=== PATIENT | female | born 1965 | race Caucasian/White ===

== ENCOUNTER 2019-10-02 15:01 | Outpatient (CLI) | payer SELFPAY ==
--- NOTE | 2019-10-02 15:07 | US_ITS ---
WS: [id number] ULTRASOUND SOFT TISSUES RIGHT axilla. HISTORY: RIGHT AXILLARY ACUTE LYMPHANGITIS COMPARISON: None available. TECHNIQUE: 2-D and color Doppler imaging is submitted. No soft tissue masses or fluid collections in the RIGHT axilla. No lymphadenopathy. US/US soft tissue/extremity [id number] IMPRESSION: Normal ultrasound RIGHT axilla.
== END 2019-10-02 15:02 | disposition home or self-care (01) ==
LOC: US 15:02
PROVIDERS: PCP Nurse Practitioner Family; Visit Provider Nurse Practitioner Family
DX: L03.121 Acute lymphangitis of right axilla (principal)
CPT/HCPCS: 76882

== ENCOUNTER 2019-10-17 08:32 | Outpatient (CLI) | payer OTHER, SELFPAY ==
--- NOTE | 2019-10-17 08:38 | MM_ITS ---
WS: [id number] DIAGNOSTIC BILATERAL DIGITAL MAMMOGRAM WITH CAD RIGHT breast ultrasound, limited HISTORY: RT BREAST LUMP AXILLA COMPARISON: None available. TECHNIQUE: Bilateral craniocaudad, mediolateral oblique, and mediolateral views are submitted. Spot c ompression RIGHT MLO. Computer aided detection utilized. Breast composition: The breasts are heterogeneously dense, which may obscure small masses. No suspici ous masses or calcifications. Palpable marker towards the inferior RIGHT axilla demonstrates no under lying abnormality. There are benign symmetric lymph nodes in the axilla. RIGHT breast ultrasound, limited. Ultrasound is directed to the axilla. There is no mass. No skin thickening or increased vascularity. MM/[place] [id number] IMPRESSION: BI-RADS: 2-Benign FOLLOW UP: 1 Year Follow-up
== END 2019-10-17 08:33 | disposition home or self-care (01) ==
LOC: RADSHAW 08:34
PROVIDERS: PCP Nurse Practitioner Family; Visit Provider Nurse Practitioner
DX: R22.31 Localized swelling, mass and lump, right upper limb (principal)
CPT/HCPCS: 76642; 77066

== ENCOUNTER 2020-01-21 14:21 | Outpatient (CLI) | payer SELFPAY ==
--- NOTE | 2020-01-21 14:34 | CT_ITS ---
WS: [id number] CT LUNG CANCER SCREENING DLP: 77.12 mGy.cm DIvol: 2.26 mGy CLINICAL INFORMATION SCREENING VISIT: Baseline COMPARISON: None available. FINDINGS Diagnostic quality: Satisfactory Comments: None. Lung Nodules: No noncalcified pulmonary nodules. There is a calcified nodule in the posterior RIGHT u pper lobe measuring 5 mm. Lungs: Paraseptal emphysema. Heart: Normal size heart. Small amount of pericardial thickening anteriorly. Other findings: Minimal atherosclerosis aorta. Pulmonary artery size is normal. There are a few scatt ered calcifications in the LEFT anterior descending coronary artery. No mediastinal or hilar adenopat hy. No adrenal mass. No osseous destruction. CT/CT lung screening [id number] IMPRESSION: LUNG-RADS: 1-Negative FOLLOW UP: 12 Month: Continue annual screening with LDCT
== END 2020-01-21 14:22 | disposition home or self-care (01) ==
LOC: RAD 14:23
PROVIDERS: PCP Nurse Practitioner Family; Visit Provider Family Medicine
DX: Z12.2 Encounter for screening for malignant neoplasm of respiratory organs (principal); Z87.891 Personal history of nicotine dependence
CPT/HCPCS: G0297

== ENCOUNTER 2020-03-17 05:48 | Day surgery (SDC) | payer SELFPAY ==
[2020-03-17 06:08] VITALS: BP 133/91; PULSE 69; RESP 16; TEMP 36.6; O2SAT 99; BMI 26.2
--- NOTE | 2020-03-17 06:10 | W.PM.OPSUD ---
Surgery/Procedure H&P Update DATE OF PROCEDURE: March 17, 2020 DATE H&P PERFORMED: 02/19/20 H&P UPDATE INFORMATION: I have reviewed H&P completed within last 30 days, I have examined patient prior to procedure and No changes to prior documentation PREOP DIAGNOSIS: Bleeding per rectum PRIMARY INDICATION FOR PROCEDURE: The same PLANNED PROCEDURE: Operation Date: 03/17/20 07:00 Proposed Procedures p Colonoscopy [id number] 22993 Z12.11 K64.9(Not Applicable) - Manoj Costello MD s Exam Under Anesthesia(Not Applicable) - Manoj Costello MD s Hemorroidectomy(Not Applicable) - Manoj Costello MD
--- NOTE | 2020-03-17 06:20 | ANES.PREANE2 ---
Pre-Anesthetic Assessment Pre-Anesthetic Assessment: Height/Weight: Height 1.63 m Preop Diagnosis: Bleeding per rectum Proposed Procedure: Operation Date: 03/17/20 07:00 Proposed Procedures p Colonoscopy [id number] 87570 Z12.11 K64.9(Not Applicable) - Manoj Costello MD s Exam Under Anesthesia(Not Applicable) - Manoj Costello MD s Hemorroidectomy(Not Applicable) - Manoj Costello MD Familial anesthetic complications: \None Was Beta Newton taken within 24 hours: N/A Last intake: NPO > 8 hrs Social: Social History: Alcohol and No tobacco Comment: 10 beers a week Exam: Pre-Anes Outpt Exam: alert, oriented x 3, clear to auscultation bilaterally and regular rate & rhythm Airway: Cervical ROM: WNL MP: 3 Dentition: Partials Pulmonary: Pulmonary: None reported CV/HEM: CV/HEM: HTN : : None reported Hepatic: Hepatic: None reported GI: GI: GERD Metabolic: Metabolic: Thyroid Musc/skel: Musc/skel: None reported Neuropsych: Neuropsych: None reported Anesthetic Plan: ASA status: 2 Anesthesia: General Risk of > 500 ml blood loss (7ml/kg in children): No PFSH Anesthesia PFSH: Medical History Blood in stool Hemorrhoids Hyperlipidemia Hypothyroidism Joint pain in both hands Screen for colon cancer Surgical History H/O hysterectomy with unilateral oophorectomy right ovary removed h/o cervical cancer History of appendectomy Family History Mother Cancer cervical CAD (coronary artery disease) Clotting disorder Hypertension Osteoarthritis Hypothyroid Social History Smoking and tobacco status: former smoker Alcohol intake: current Data Anesthesia Cardiac Studies: No Data to Display
[2020-03-17] MEDS: sodium chloride 0.9% 1,000 ML 30 ML IV (06:34)
[2020-03-17] MEDS: piperacillin-tazobactam 3.375 GM in sodium chloride 0.9% (plus) 50 ML IV (06:57)
[2020-03-17] MEDS: sodium chloride 0.9% SDV 10 mL (07:48)
--- NOTE | 2020-03-17 07:58 | P.OP_ITS ---
Operative Report Date of procedure: March 17, 2020 Pre-op Diagnosis: Bleeding per rectum Post-op diagnosis: other (Right sided colon polyp, rectal polyp and right lower lateral hemorrhoid) Procedure Done: Colonoscopy with examination under anesthesia and hemorrhoidectomy Specimens removed/disposition: Right sided colon polyp, rectal polyp and right lower lateral hemorrhoid Surgeon: Manoj Costello Rotary Operator: Surgical liz Florentino Circulating nurse Eloina Anesthesia: MAC (dance instructor Smart) Estimated blood loss (mL): 10 Condition: stable Disposition: same day Brief History: This is a pleasant 54 years old female patient presented to my office with history of bleeding per rectum in the presence of hemorrhoidal disease, after thorough history physical examination reviewing the chart I did travel counselor automobile club the patient for colonoscopy with examination under anesthesia with hemorrhoidectomy, she is agreed to proceed. Informed consent per chart Procedure: Patient was identified in the holding area, was taken to the OR placed first in supine position,IV antibiotics were given with induction time- out was done verifying the patient's name, date of , and procedure, all were in agreement. Propofol was infused by the anesthesia provider, patient was placed in left lateral position. Perianal examination showed right lower lateral hemorrhoid/chronic skin tag, otherwise rectal examination was normal Following that a digital rectal examination was done, the colonoscope was then introduced via the anus under direct visualization, all the way to the cecum, prep of the colon was appropriate, there were right-sided flattened colon polyp measured about 2 x 4 mm were piecemeal and cold biopsy Multibite was used, followed by Endo Clip was applied for hemostasis. Another polyp was found in the rectum was 2 x 3 mm and was excised by multi-bite cold biopsy forceps followed by an Endo Clip. The scope was then retrieved back ,time for withdrawal exceeded 9 minutes,CO2 gas was deflated on the way out. Retroflex was done at the end showing normal findings prep and drape of the perineum was done under the usual sterile technique All pressure points were padded, right lower lateral hemorrhoidal tissue was appreciated versus chronic skin tag Injection of Exparel was done arround the lesion A lubricated self-retaining proctoscope was inserted, Started by introducing a wet sponge to prevent any residual colon prep from contaminating the site of the excision, and under direct visualization I was able to hold the hemorrhoidal tissue with Allis clamps, I was able to excise it using harmonic scalpel followed by running 2-0 chromic catgut. Hemostasis was achieved, irrigation was done, sponge was retrieved. A piece of Surgicel /piece of Xeroform impregnated with lidocaine 2% jelly was placed in the anal canal, attached to 2-0 silk suture, to help retrieving it by the patient later on ABDs were applied followed by surgical pants Patient was repositioned to supine position, counts of instruments,needles and sponges were completed at the end of the procedure Patient was taken to the recovery area in stable condition I was present for the whole entire procedure
[2020-03-17 08:00] VITALS: BP 111/73; PULSE 73; RESP 18; TEMP 36.3; O2SAT 99
[2020-03-17] MEDS: HYDROcodone-acetaminophen 5-325 mg Tablet 1 TAB PO (08:23)
[2020-03-17 08:39] VITALS: BP 112/63; PULSE 64; RESP 18; O2SAT 99
== END 2020-03-17 08:41 | disposition home or self-care (01) ==
PROVIDERS: PCP Family Medicine; Visit Provider Surgery
PROC: 0DJD8ZZ Inspection of Lower Intestinal Tract, Via Natural or Artificial Opening Endoscopic (ICD-10-PCS; CPT 45378; principal; 2020-03-17 07:00)
PROC: (CPT 46999; 2020-03-17 07:00)
PROC: (CPT 46999; 2020-03-17 07:00)
DX: K62.5 Hemorrhage of anus and rectum (principal); D12.2 Benign neoplasm of ascending colon; K64.8 Other hemorrhoids; I10 Essential (primary) hypertension; K21.9 Gastro-esophageal reflux disease without esophagitis; E78.5 Hyperlipidemia, unspecified; E03.9 Hypothyroidism, unspecified; Z87.891 Personal history of nicotine dependence
CPT/HCPCS: 46999; 12345; 88304; 88305; 96365; C9290; J0131; J2543; J2704; J3490; J7030

== ENCOUNTER 2021-01-04 10:40 | Outpatient (CLI) | payer OTHER, SELFPAY ==
--- NOTE | 2021-01-04 10:48 | MM_ITS ---
WS: [id number] BILATERAL DIGITAL SCREENING MAMMOGRAPHY WITH CAD CLINICAL INFORMATION: SCREENING HISTORY: Screening mammogram. No current complaints. COMPARISON: October 17, 2019 TECHNIQUE: Bilateral CC and MLO views. FINDINGS: The breasts are composed of heterogeneous fibroglandular density tissue, which can limit the detectio n of small underlying mass lesions. No suspicious mass, asymmetry, calcifications, or architectural d istortion. No evidence of malignancy. A few punctate calcifications. MM/[place] [id number] IMPRESSION: BI-RADS: 2-Benign FOLLOW UP: 1 Year Follow-up Recommend return to annual screening mammography.
== END 2021-01-04 10:41 | disposition home or self-care (01) ==
PROVIDERS: Visit Provider Nurse Practitioner
DX: Z12.31 Encounter for screening mammogram for malignant neoplasm of breast (principal)
CPT/HCPCS: 77067

== ENCOUNTER 2021-07-19 12:58 | Outpatient (CLI) | payer SELFPAY ==
--- NOTE | 2021-07-19 13:12 | XR_ITS ---
WS: [id number] RIGHT HAND: 3 VIEW(S) TECHNIQUE: PA, oblique and lateral. HISTORY: ARTHRITIS COMPARISON: None available. No acute fracture or dislocation. No soft tissue swelling or edema. Mild narrowing of interphalangeal joints. Small erosion involving t he distal scaphoid. Very mild STT point narrowing. XR/XR hand RT min 3V* [id number] IMPRESSION: Mild osteoarthritic changes as above.
== END 2021-07-19 12:59 | disposition home or self-care (01) ==
PROVIDERS: PCP Nurse Practitioner Family; Visit Provider Nurse Practitioner Family
DX: M19.041 Primary osteoarthritis, right hand (principal)
CPT/HCPCS: 73130

== ENCOUNTER 2021-12-21 10:00 | Outpatient (CLI) | payer SELFPAY ==
--- NOTE | 2021-12-21 10:08 | MM_ITS ---
WS: [id number] SCREENING 3D TOMOSYNTHESIS DIGITAL MAMMOGRAM WITH CAD HISTORY: SCREENING COMPARISON: 01/04/2021 and 10/17/2019 Bilateral CC and MLO views submitted. Computer aided detection analyzed. Breast composition: The breasts are heterogeneously dense, which may obscure small masses. No suspici ous masses, microcalcifications or architectural distortion. No change in the overall fibroglandular pattern. MM/[place] [id number] IMPRESSION: BI-RADS: 2-Benign FOLLOW UP: 1 Year Follow-up
== END 2021-12-21 10:01 | disposition home or self-care (01) ==
LOC: RAD 10:00
PROVIDERS: PCP Nurse Practitioner Family; Visit Provider Nurse Practitioner
DX: Z12.31 Encounter for screening mammogram for malignant neoplasm of breast (principal)
CPT/HCPCS: 77063; 77067

== ENCOUNTER 2022-04-06 08:16 | Outpatient (CLI) | payer SELFPAY ==
--- NOTE | 2022-04-06 08:34 | CT_ITS ---
WS: [id number] LDCT LUNG CANCER SCREENING TECHNIQUE: Noncontrast CT of the chest with coronal and sagittal reformatted images. CLINICAL INFORMATION: NICOTINE DEPENDENCE COMPARISON: January 21, 2020 DLP: 70.50 mGy.cm DIvol: Mean CTDIvol: 1.60 (mGy) All CT scans at [facility] use at least one of these dose optimization techniques: automat ed exposure control; mA and/or kV adjustment per patient size (includes targeted exams where dose is matched to clinical indication); or iterative reconstruction. FINDINGS:3 mm noncalcified nodule RIGHT upper lobe unchanged. 2 mm noncalcified nodule RIGHT lower lo be posteriorly unchanged. Tiny noncalcified nodules along the RIGHT fissure unchanged. Mild chronic emphysematous changes. No acute pulmonary infiltrates. No focal pneumonia or pleural flu id. Normal caliber thoracic aorta. Vascular calcification. Coronary calcification. No mediastinal or hilar lymphadenopathy. No axillary lymphadenopathy. Adrenal glands are normal. Normal GE junction. CT/CT lung screening [id number] IMPRESSION: LUNG-RADS: 2-Benign Appearance or Behavior FOLLOW UP: 12 Month: Continue annual screening with LDCT
== END 2022-04-06 08:17 | disposition home or self-care (01) ==
LOC: RAD 08:19
PROVIDERS: PCP Nurse Practitioner Family; Visit Provider Nurse Practitioner Family
DX: Z12.2 Encounter for screening for malignant neoplasm of respiratory organs (principal); F17.210 Nicotine dependence, cigarettes, uncomplicated
CPT/HCPCS: 71271

== ENCOUNTER 2022-12-27 09:02 | Outpatient (CLI) | payer OTHER, SELFPAY ==
--- NOTE | 2022-12-27 09:16 | MM_ITS ---
WS: [id number] BILATERAL 3D TOMOSYNTHESIS DIGITAL SCREENING MAMMOGRAPHY WITH CAD CLINICAL INFORMATION: SCREENING HISTORY: Screening mammogram. No current complaints. COMPARISON: 2021 TECHNIQUE: Bilateral CC and MLO views. FINDINGS: The breasts are composed of heterogeneous fibroglandular density tissue, which can limit the detectio n of small underlying mass lesions. No suspicious mass, asymmetry, calcifications, or architectural d istortion. No evidence of malignancy. Vascular calcification. A few incidental punctate calcification s. MM/[place] [id number] IMPRESSION: BI-RADS: 2-Benign FOLLOW UP: 1 Year Follow-up Recommend return to annual screening mammography.
[2022-12-28 11:34] LABS: HSV 2 IGG Type Specific AB <0.90 index
== END 2022-12-27 09:03 | disposition home or self-care (01) ==
PROVIDERS: Surgery; PCP Nurse Practitioner Family; Visit Provider Nurse Practitioner
DX: Z12.11 Encounter for screening for malignant neoplasm of colon (principal); Z72.51 High risk heterosexual behavior
CPT/HCPCS: 36415; 77063; 77067; 86695; 86696

== ENCOUNTER 2023-01-13 05:46 | Day surgery (SDC) | payer MEDICAID, SELFPAY ==
[2023-01-11 13:00] VITALS: BMI 28.6
[2023-01-13 06:02] VITALS: BP 114/84; PULSE 88; RESP 16; TEMP 36.1; O2SAT 98
[2023-01-13] MEDS: sodium chloride 0.9% 1,000 ML 30 ML IV (06:11)
--- NOTE | 2023-01-13 06:51 | P.ANESASSM_ITS ---
Pre-Anesthetic Assessment Height/Weight: Height 1.63 m Weight 75.75 kg Temp Pulse Resp BP Pulse Ox O2 Del Method 97 F L 88 16 114/84 98 Room Air 01/13/23 06:02 01/13/23 06:02 01/13/23 06:02 01/13/23 06:02 01/13/23 06:02 01/13/23 06:02 Preop Diagnosis: abdominal pain Operation Date: 01/13/23 07:30 Proposed Procedures p 77797 EGD 46339 Colonoscopy R10.9,K52.9(Not Applicable) - Landon Patton DO s Colonoscopy(Not Applicable) - Landon Patton DO Was Beta Newton taken within 24 hours: N/A Was Clonidine taken within 24 hours: N/A Last intake: Intake Last Liquid Date 01/12/23 Last Liquid Time 22:00 Last Solid Date 01/11/23 Last Solid Time 20:30 Social Alcohol (4 beers every couple days) and No tobacco Exam alert and oriented x 3 Airway Submandibular: within normal limits Cervical ROM: within normal limits Mallampati: Class II Dentition: false and partials History/ROS No significant history except as noted Pulmonary None reported CV/HEM None reported None reported Hepatic None reported GI Gastroesophageal Reflux Disease Metabolic Hyperlipidemia and Thyroid Disease Musc/skel None reported Neuropsych None reported Anesthetic Plan ASA status: 2 Anesthesia: MAC Risk of > 500 ml blood loss (7ml/kg in children): No Medications/Allergies Home Medications Medication Instructions Recorded Confirmed Last Taken Type omega 7-eut-bnn-fish oil 1,000 mg 1 cap PO DAILY 03/17/20 01/11/23 01/04/23 History (120 mg-180 mg) capsule (Fish Oil) levothyroxine 75 mcg tablet 75 mcg PO DAILY #90 tabs 12/09/20 01/13/23 01/13/23 Rx atorvastatin 40 mg tablet 40 mg PO BEDTIME 12/27/22 01/13/23 01/12/23 History diclofenac sodium 50 mg 50 mg PO TID PRN Pain 12/27/22 01/13/23 01/11/23 History tablet,delayed release Allergies Allergy/AdvReac Type Severity Reaction Status Date / Time No Known Allergies Allergy Verified 01/11/23 12:57 Current Medications Generic Name Dose Route Start Last Admin Trade Name Freq PRN Reason Stop Dose Admin Sodium Chloride 1,000 mls @ 30 mls/hr 01/13/23 06:00 01/13/23 06:11 Sodium Chloride 0.9% IV 01/14/23 05:59 30 mls/hr .Q24H DULCE Administration PFSH Anesthesia Medical History Blood in stool Hemorrhoids Hyperlipidemia Hypothyroidism Joint pain in both hands Screen for colon cancer Surgical History H/O hysterectomy with unilateral oophorectomy right ovary removed h/o cervical cancer History of appendectomy History of hemorrhoidectomy (~02/2020) dr. [place]val. [facility] [place] Family History Mother Cancer cervical CAD (coronary artery disease) Clotting disorder Hypertension Osteoarthritis Hypothyroid Social History Smoking and tobacco status: former smoker Alcohol intake: current Substance/Drug Use: never Lives independently: Yes Household members: spouse Marital status: Current occupational status: unemployed Data Anesthesia Cardiac Studies: No Data to Display
--- NOTE | 2023-01-13 07:18 | W.PM.OPSUD ---
Surgery/Procedure H&P Update DATE OF PROCEDURE: January 13, 2023 DATE H&P PERFORMED: 12/27/22 H&P UPDATE INFORMATION: I have reviewed H&P completed within last 30 days, I have examined patient prior to procedure and No changes to prior documentation PREOP DIAGNOSIS: abdominal pain PLANNED PROCEDURE: Operation Date: 01/13/23 07:30 Proposed Procedures p [id number] EGD 74843 Colonoscopy R10.9,K52.9(Not Applicable) - Landon Patton DO s Colonoscopy(Not Applicable) - Landon Patton DO
[2023-01-13 07:54] VITALS: BP 111/79; PULSE 93; RESP 20; TEMP 36.1; O2SAT 95
[2023-01-13 08:11] VITALS: BP 125/100; PULSE 73; RESP 18; O2SAT 95
--- NOTE | 2023-01-13 16:06 | ANE.PACU2 ---
Inpatient post-anesthesia follow up: Airway intact: Yes Vital signs: Temperature 97.0 F Pulse Rate 73 Respiratory Rate 18 Blood Pressure 125/100 Pulse Oximetry 95 Oxygen Delivery Me thod Room Air Oxygen Flow Rate Fraction of Inspir ed Oxygen Hydration adequate: Yes Nausea and vomiting: No Pain level: 1 Mental status: Baseline
== END 2023-01-13 08:15 | disposition home or self-care (01) ==
PROVIDERS: PCP Nurse Practitioner Family; Visit Provider Surgery
PROC: 0DJ08ZZ Inspection of Upper Intestinal Tract, Via Natural or Artificial Opening Endoscopic (ICD-10-PCS; CPT 43235; principal; 2023-01-13 07:30)
PROC: 0DJD8ZZ Inspection of Lower Intestinal Tract, Via Natural or Artificial Opening Endoscopic (ICD-10-PCS; CPT 45378; 2023-01-13 07:30)
DX: R10.9 Unspecified abdominal pain; K52.9 Noninfective gastroenteritis and colitis, unspecified; K29.70 Gastritis, unspecified, without bleeding; K21.9 Gastro-esophageal reflux disease without esophagitis; E78.5 Hyperlipidemia, unspecified; E03.9 Hypothyroidism, unspecified; Z87.891 Personal history of nicotine dependence; K92.1 Melena; L29.0 Pruritus ani; K62.89 Other specified diseases of anus and rectum; K29.80 Duodenitis without bleeding
CPT/HCPCS: 43239; 45380; 82274; 83630; 87493; 87506; 88305; 88342; J2704; J7030

== ENCOUNTER 2023-11-24 14:50 | Outpatient (CLI) | payer MEDICAID, SELFPAY ==
--- NOTE | 2023-11-24 14:56 | XR_ITS ---
WS: [id number] Exam: XR cervical spine 3V* [id number] Date/Time of Exam: 11/24/2023 3:16 PM Reason For Exam: CERVICALGIA/OTALGIA,L EAR No acute fracture or dislocation. Slight narrowing of the C5-6 disc and mild spondylosis at C5 and C6 . Mild facet DJD. The odontoid is intact. Normal paraspinal soft tissues. IMPRESSION: 1. Minimal degenerative change. 2. No fracture or malalignment.
== END 2023-11-24 14:51 | disposition home or self-care (01) ==
LOC: RAD 14:53
PROVIDERS: PCP Nurse Practitioner Family; Visit Provider Otolaryngology
DX: M54.2 Cervicalgia (principal); H92.02 Otalgia, left ear; M47.892 Other spondylosis, cervical region
CPT/HCPCS: 72040

== ENCOUNTER 2024-01-01 08:38 | Outpatient (CLI) | payer MEDICAID, SELFPAY ==
--- NOTE | 2024-01-01 08:42 | MM_ITS ---
WS: [id number] BILATERAL SCREENING DIGITAL TOMOSYNTHESIS MAMMOGRAM WITH CAD HISTORY: SCREENING COMPARISON: 12/27/2022, 12/21/2021 and 01/04/2021 Bilateral CC and MLO views with tomosynthesis and synthetic mammography submitted. Computer aided det ection analyzed. Breast composition: The breasts are heterogeneously dense, which may obscure small masses. No suspici ous masses, microcalcifications or architectural distortion. MM/[place] [id number] IMPRESSION: BI-RADS: 1-Negative FOLLOW UP: 1 Year Follow-up
== END 2024-01-01 08:39 | disposition home or self-care (01) ==
LOC: RAD 08:39
PROVIDERS: PCP Nurse Practitioner Family; Visit Provider Nurse Practitioner Family
DX: Z12.31 Encounter for screening mammogram for malignant neoplasm of breast (principal)
CPT/HCPCS: 77063; 77067

== ENCOUNTER 2025-01-08 10:27 | Outpatient (CLI) | payer MEDICAID, SELFPAY ==
--- NOTE | 2025-01-08 10:32 | MM_ITS ---
WS: [id number] BILATERAL 3D TOMOSYNTHESIS DIGITAL SCREENING MAMMOGRAPHY WITH CAD CLINICAL INFORMATION: SCREENING HISTORY: Screening mammogram. No current complaints. COMPARISON: 2023 TECHNIQUE: Bilateral CC and MLO views. FINDINGS: The breasts are composed of heterogeneous fibroglandular density tissue, which can limit the detection of small underlying mass lesions. No suspicious mass, asymmetry, calcifications, or architectural distortion. No evidence of malignancy. A few incidental punctate calcifications. MM/MM [facility] tomosynthesis [id number] IMPRESSION: DENSITY: The breasts are heterogeneously dense, which may obscure small masses. BI-RADS: 2 - Benign FOLLOW UP: 1 Year Follow-up Recommend return to annual screening mammography.
--- NOTE | 2025-01-08 10:32 | XR_ITS ---
WS: [id number] Exam: XR chest 2V* [id number] Date/Time of Exam: 01/08/2025 10:54 AM Reason For Exam: CHRONIC COUGH No priors. Lungs are fully inflated and clear. Normal cardiomediastinal silhouette. Bony structures are intact. Old RIGHT clavicle fracture. No pleural effusion. XR/XR chest 2V* [id number] IMPRESSION: 1. Negative chest.
== END 2025-01-08 10:28 | disposition home or self-care (01) ==
LOC: RAD 10:29
PROVIDERS: Absent Provider Family Medicine; PCP Nurse Practitioner Family; Visit Provider Nurse Practitioner Family
DX: Z12.31 Encounter for screening mammogram for malignant neoplasm of breast (principal); R05.3 Chronic cough; R92.333 Mammographic heterogeneous density, bilateral breasts; R92.1 Mammographic calcification found on diagnostic imaging of breast; Z87.81 Personal history of (healed) traumatic fracture
CPT/HCPCS: 71046; 77063; 77067